=== PATIENT | male | born 1975 | race Caucasian/White ===

== ENCOUNTER 2017-11-22 03:06 | Emergency (ER) | payer SELFPAY ==
[2017-11-22] MEDS ORDERED: NORMAL SALINE 1000 ML 1,000 ML IV ONE (04:02)
[2017-11-22] MEDS ORDERED: KETOROLAC TROMETHAMINE INJ/PF 30 MG/1 ML SDV IV ONE (04:02)
[2017-11-22 04:56] LABS: ABSOLUTE EOSINOPHILS # (AUTO) 0.1 10^3/uL (0.0-0.6); ABSOLUTE MONOCYTES (AUTO) 0.4 10^3/uL (0.1-1.4); ABSOLUTE NEUT (AUTO) 3.7 10^3/uL (1.7-8.2); BASOPHILS % (AUTO) 0.4 % (0-2); EOSINOPHILS % (AUTO) 2.2 % (0-6); HEMATOCRIT 43.5 % (37.9-51.0); HEMOGLOBIN 14.8 g/dL (13.5-17.0); MEAN CORPUSCULAR HEMOGLOBIN 31.6 pg (27.0-33.4); MEAN CORPUSCULAR VOLUME 93 fl (80-97); MONOCYTES % (AUTO) 7.1 % (3-13); PLATELET COUNT 217 10^3/uL (150-450); RED BLOOD COUNT 4.67 10^6/uL (4.35-5.55); RED CELL DISTRIBUTION WIDTH 12.9 % (11.5-14.0); SEGMENTED NEUTROPHILS % (AUTO) 58.3 % (42-78); TOTAL CELLS COUNTED % (AUTO) 100 %; WHITE BLOOD COUNT 6.3 10^3/uL (4.0-10.5)
[2017-11-22 05:07] LABS: APPEARANCE,URINE CLOUDY; BILIRUBIN,URINE NEGATIVE (NEGATIVE); COLOR,URINE STRAW; GLUCOSE, URINE NEGATIVE (NEGATIVE); KETONES,URINE NEGATIVE (NEGATIVE); LEUKOCYTE ESTERASE,URINE LARGE (NEGATIVE); NITRITE,URINE NEGATIVE (NEGATIVE); PROTEIN,URINE NEGATIVE (NEGATIVE); URINE SPECIFIC GRAVITY 1.018; UROBILINOGEN,URINE NEGATIVE mg/dL (<2.0)
[2017-11-22] MEDS ORDERED: MORPHINE SULFATE 10 MG/ML INJ IV ONE (05:47)
[2017-11-22 06:30] LABS: ALANINE AMINOTRANSFERASE 33 U/L (21-72); ALBUMIN 3.8 g/dL (3.5-5.0); ALKALINE PHOSPHATASE 71 U/L (38-126); ANION GAP 12 (5-19); ASPARTATE AMINO TRANSFERASE 23 U/L (17-59); BILIRUBIN,DIRECT 0.3 mg/dL (0.0-0.4); BILIRUBIN,TOTAL 0.4 mg/dL (0.2-1.3); BLOOD UREA NITROGEN 17 mg/dL (7-20); CALCIUM 8.9 mg/dL (8.4-10.2); CARBON DIOXIDE 28 mmol/L (22-30); CHLORIDE 106 mmol/L (98-107); GLUCOSE 106 mg/dL (75-110); LIPASE 492.6 U/L (23-300); POTASSIUM 3.9 mmol/L (3.6-5.0); SODIUM 146.3 mmol/L (137-145)
--- NOTE | 2017-11-22 06:30 | RADIOLOGY REPORT (SQ) ---
EXAM DESCRIPTION: CT ABDOMEN WITHOUT IV CONTRAST CLINICAL HISTORY: 42 years Male, bilateral flank pain Comparison: None. Technique: No contrast. Coronal and sagittal reformat. This exam was performed according to our departmental dose-optimization program, which includes automated exposure control, adjustment of the mA and/or kV according to patient size and/or use of iterative reconstruction technique.[facility]: Dose Right [facility]: CareDose [facility]: Dose Right [facility]: Teradose 4D [facility]: RisparmioSuper LIMITATIONS: None. Findings: Small L4-L5 disc bulge, moderate sclerosis and mild irregularity of endplates at the L4-L5 level. Mild spinal and mild bilateral foraminal canal stenosis. Paraspinal soft tissues are clear. No free fluid. Unenhanced lower thorax, abdominopelvic structures including a normal appendix, and musculoskeleton appear otherwise grossly unremarkable. Impression: Abnormal L4-L5 disc. Differential diagnosis includes subacute/chronic infectious discitis or atypical degenerative disc. Recommend contrast MRI of the lumbar spine.
--- NOTE | 2017-11-22 06:34 | ER Document Report ---
ED General - General Chief Complaint: Abdominal pain, Flank pain Stated Complaint: ABDOMINAL PAIN Time Seen by Provider: 11/22/17 03:45 Mode of Arrival: Ambulatory Notes: 42-year-old male patient complains of bilateral flank pain 2 days, with dysuria , mid abdominal altered sensation "feels like something crawling in there" and throbbing behind his bilateral eyes. Patient reports that all of his pain started Wednesday. Patient is completely alert and oriented and is in no distress. Patient reports past medical history of a possible cyst on his kidney was diagnosed 12-18 months ago. Patient denies any other past medical or surgical history. TRAVEL OUTSIDE OF THE [place] IN LAST 30 DAYS: No - Related Data Allergies/Adverse Reactions: aspirin Allergy (Verified 11/22/17 03:13) Past Medical History - General Information source: Patient - Social History Smoking Status: Current Every Day Smoker Frequency of alcohol use: Social Drug Abuse: None Family History: Reviewed & Not Pertinent Patient has suicidal ideation: No Patient has homicidal ideation: No - Medical History Medical History: Negative Renal/ Medical History: Denies: Hx Peritoneal Dialysis Surgical Hx: Negative Review of Systems - Review of Systems Constitutional: No symptoms reported EENT: No symptoms reported Cardiovascular: No symptoms reported Respiratory: No symptoms reported Gastrointestinal: See HPI Genitourinary: See HPI Male Genitourinary: See HPI Musculoskeletal: No symptoms reported Skin: No symptoms reported Hematologic/Lymphatic: No symptoms reported Neurological/Psychological: No symptoms reported Physical Exam - Vital signs Vitals: Temp Pulse Resp BP Pulse Ox 98.3 F 78 18 165/106 H 98 11/22/17 03:18 11/22/17 03:18 11/22/17 03:18 11/22/17 03:18 11/22/17 03:18 - Notes Notes: PHYSICAL EXAMINATION: GENERAL: Well-appearing, well-nourished and in no acute distress. HEAD: Atraumatic, normocephalic. EYES: Pupils equal round and reactive to light, extraocular movements intact, sclera anicteric, conjunctiva are normal. ENT: Nares patent, oropharynx clear without exudates. Moist mucous membranes. NECK: Normal range of motion, supple without lymphadenopathy LUNGS: Breath sounds clear to auscultation bilaterally and equal. No wheezes rales or rhonchi. HEART: Regular rate and rhythm without murmurs ABDOMEN: Soft, nondistended, pain with palpation to periumbilical area.. No guarding, no rebound. No masses appreciated. Musculoskeletal: Normal range of motion, no pitting or edema. No cyanosis. NEUROLOGICAL: Cranial nerves grossly intact. Normal speech, normal gait. Normal sensory, motor exams PSYCH: Normal mood, normal affect. SKIN: Warm, Dry, normal turgor, no rashes or lesions noted. Course - Re-evaluation Re-evalutation: Well-appearing 40-year-old male presents with very vague complaints. Patient reports that he feels like his eyeballs have throbbing behind them, he feels that there is something crawling in his abdomen right around his umbilical area , has bilateral flank pain he also reports that he has had dysuria. Patient's exam is completely benign other than mild tenderness with deep palpation over the periumbilical area. No guarding no rebound. CT limited with no acute findings, no infected stone, appendix well visualized and appears normal. Lipase mildly elevated at 492. Patient is tolerating p.o. fluids with no issues, patient is not nauseated nausea or vomiting. Urinalysis shows large leukocytes with greater than 182 white blood cells. Patient will be sent home on p.o. antibiotics for urinary tract infection and he will also be treated in the department for potential chlamydia and gonorrhea this patient now states that there is a possibility of him having STDs. Patient further stating that he needs something to control his symptoms at home of his migraine type headaches. Patient states he has taken Fioricet in the past a few years ago and it worked well for him. Will provide patient with prescription for Fioricet and discharge patient home. - Vital Signs Vital signs: Temp Pulse Resp BP Pulse Ox 98.3 F 78 18 165/106 H 98 11/22/17 03:18 11/22/17 03:18 11/22/17 03:18 11/22/17 03:18 11/22/17 03:18 - Laboratory Result Diagrams: 11/22/17 04:32 11/22/17 05:40 Laboratory results interpreted by me: 11/22/17 11/22/17 04:32 05:40 Sodium 146.3 H Creatinine 1.37 H Est GFR (Non-Af Amer) 57 L Lipase 492.6 H Ur Leukocyte Esterase LARGE H Discharge - Discharge Clinical Impression: Abdominal pain Qualifiers: Abdominal location: unspecified location Qualified Code(s): R10.9 - Unspecified abdominal pain Urinary tract infection Qualifiers: Urinary tract infection type: site unspecified Hematuria presence: without hematuria Qualified Code(s): N39.0 - Urinary tract infection, site not specified Condition: Stable Disposition: HOME, SELF-CARE Instructions: Cephalexin ([facility]), Urinary Tract Infection ([facility]) Additional Instructions: Urinary Tract Infection Your evaluation indicates that you have a urinary tract infection. This is due to germs growing in the bladder. This is a common problem. This infection usually responds quickly to antibiotics. Your antibiotic should be taken exactly as prescribed. Drink plenty of fluids -- three to four quarts a day. Occasionally, a bladder anesthetic will be prescribed to help stop the feeling of urgency until the antibiotic has a chance to clear the infection. This may cause your urine to be dark orange. Certain urine infections require a culture. If the doctor obtained a culture, the results will be back in two days. You should call to see if a change in treatment is needed. A repeat urinalysis after you finish treatment is often recommended. The physician will let you know if further testing is required. Call the doctor if you develop fever, chills, flank pain, inability to urinate, or blood in the urine. Headache The physician does not feel that the headache you are experiencing has a serious underlying cause. Most headaches are due to emotional stress, with resultant muscle tension (tension headache). Occasionally, headaches are secondary to changes in the blood vessels of the scalp (vascular headache and migraine headache). Sometimes, a headache is the first symptom of another developing illness, such as a viral infection. You have no evidence of stroke, bleeding, meningitis, or other serious cause of your headache. The treatment of headaches varies with the severity and cause of the pain. Not all headaches need pain shots. In fact, there is evidence that using narcotics for headaches may make them worse in the long run. The physician will determine the therapy that's in your best interest. If you develop a fever, if the headache is different from any you've previously experienced, or if the headache progressively worsens, then call your physician at once or go to the emergency room. Narcotic Medication You have been given a narcotic for pain control while in the emergency department. Don't operate machinery or drive within six hours of taking this medication. Do not combine this medicine with alcohol, or with any medication which can cause sedation (such as cold tablets or sleeping pills) unless you get permission from the physician. Narcotics tend to cause constipation. If possible, drink plenty of fluids and eat a diet high in fiber and fruits. Prescriptions: Butalb/Acetaminophen/Caffeine [Fioricet (50-325-40 mg) Tablet] 1 tab PO Q4HP PRN #30 tab PRN Reason: Cephalexin Monohydrate [Keflex 500 mg Capsule] 500 mg PO Q6H 5 Days #20 capsule Forms: Return to Work
[2017-11-22] MEDS ORDERED: LIDOCAINE 1% INJ-PF (10 MG/ML) 30 ML SDV INJ ONE (06:49)
[2017-11-22] MEDS ORDERED: AZITHROMYCIN 1 GM SUSP PACKET PO ONE (06:49)
[2017-11-22] MEDS ORDERED: CEPHALEXIN 500 MG CAPSULE PO ONE (06:49)
[2017-11-22] MEDS ORDERED: CEFTRIAXONE INJ 250 MG VIAL IM ONE (07:12)
[2017-11-22 08:01] VITALS: BP 145/89
== END 2017-11-22 07:56 | disposition home or self-care (01) ==
LOC: ER 03:06
DX: N39.0 Urinary tract infection, site not specified (principal); F17.200 Nicotine dependence, unspecified, uncomplicated; R74.8 Abnormal levels of other serum enzymes; G43.909 Migraine, unspecified, not intractable, without status migrainosus; Z20.2 Contact with and (suspected) exposure to infections with a predominantly sexual mode of transmission
CPT/HCPCS: 99284; 96372; 96361; 96374; 36415; 83690; 85025; 80053; 81001; 76380; J3490; Q0144; J2270; J7030; J0696

== ENCOUNTER 2018-01-09 13:33 | Emergency (ER) | payer SELFPAY ==
--- NOTE | 2018-01-09 14:44 | ER Document Report ---
ED Medical Screen (RME) - General Chief Complaint: Doesn't Feel Right Stated Complaint: FLANK PAIN Time Seen by Provider: 01/09/18 14:25 Mode of Arrival: Ambulatory Information source: Patient Notes: 42 yr old male presents with complaitns of syncope yesterday while outdoor in the heat and then having spasms of the right upper extremity and right sided headache I have greeted and performed a rapid initial assessment of this patient. A comprehensive ED assessment and evaluation of the patient, analysis of test results and completion of the medical decision making process will be conducted by additional ED providers. PHYSICAL EXAMINATION: GENERAL: Well-appearing, well-nourished and in no acute distress. HEAD: Atraumatic, normocephalic. EYES: Pupils equal round extraocular movements intact, conjunctiva are normal. ENT: Nares patent NECK: Normal range of motion LUNGS: No respiratory distress Musculoskeletal: Normal range of motion NEUROLOGICAL: Normal speech, normal gait. PSYCH: Normal mood, normal affect. SKIN: Warm, Dry, normal turgor, no rashes or lesions noted. TRAVEL OUTSIDE OF THE [place] IN LAST 30 DAYS: No - Related Data Allergies/Adverse Reactions: aspirin Allergy (Verified 01/09/18 14:33) Past Medical History - Social History Chew tobacco use (# tins/day): No Frequency of alcohol use: Occasional Drug Abuse: Marijuana Renal/ Medical History: Denies: Hx Peritoneal Dialysis Past Surgical History: Reports: Hx Abdominal Surgery - hernia repair Physical Exam - Vital signs Vitals: Temp Pulse Resp BP Pulse Ox 98.6 F 89 16 135/75 H 97 01/09/18 13:49 01/09/18 13:49 01/09/18 13:49 01/09/18 13:49 01/09/18 13:49 Course - Vital Signs Vital signs: Temp Pulse Resp BP Pulse Ox 98.6 F 89 16 135/75 H 97 01/09/18 13:49 01/09/18 13:49 01/09/18 13:49 01/09/18 13:49 01/09/18 13:49
[2018-01-09 15:14] LABS: APPEARANCE,URINE CLEAR; BILIRUBIN,URINE NEGATIVE (NEGATIVE); COLOR,URINE YELLOW; GLUCOSE, URINE NEGATIVE (NEGATIVE); KETONES,URINE NEGATIVE (NEGATIVE); LEUKOCYTE ESTERASE,URINE NEGATIVE (NEGATIVE); NITRITE,URINE NEGATIVE (NEGATIVE); PROTEIN,URINE NEGATIVE (NEGATIVE); URINE SPECIFIC GRAVITY 1.009; UROBILINOGEN,URINE NEGATIVE mg/dL (<2.0)
--- NOTE | 2018-01-09 15:28 | RADIOLOGY REPORT (SQ) ---
EXAM DESCRIPTION: CT HEAD WITHOUT COMPLETED DATE/TIME: 01/09/2018 3:06 pm REASON FOR STUDY: parestheisa COMPARISON: None. TECHNIQUE: Axial images acquired through the brain without intravenous contrast. Images reviewed wi th bone, brain and subdural windows. Additional sagittal and coronal reconstructions were generated. Images stored on PACS. All CT scanners at this facility use dose modulation, iterative reconstruction, and/or weight based d osing when appropriate to reduce radiation dose to as low as reasonably achievable (ALARA). [facility]: Dose Right [facility]: CareDose [facility]: Dose Right [facility]: Teradose 4D [facility]: Smart Savored RADIATION DOSE: CT Rad equipment meets quality standard of care and radiation dose reduction techniq ues were employed. CTDIvol: 53.2 mGy. DLP: 991 mGy-cm. mGy. LIMITATIONS: None. FINDINGS: VENTRICLES: Normal size and contour. CEREBRUM: No masses. No hemorrhage. No midline shift. No evidence for acute infarction. Normal gra y/white matter differentiation. No areas of low density in the white matter. CEREBELLUM: No masses. No hemorrhage. No alteration of density. No evidence for acute infarction. EXTRAAXIAL SPACES: No fluid collections. No masses. ORBITS AND GLOBE: No intra- or extraconal masses. Normal contour of globe without masses. CALVARIUM: No fracture. PARANASAL SINUSES: No fluid or mucosal thickening. SOFT TISSUES: No mass or hematoma. OTHER: No other significant finding. IMPRESSION: NORMAL BRAIN CT WITHOUT CONTRAST. EVIDENCE OF ACUTE STROKE: NO. COMMENT: Quality ID # [id number]: Final reports with documentation of one or more dose reduction techniques (e.g., Automated exposure control, adjustment of the mA and/or kV according to patient size, use of iterative reconstruction technique) TECHNICAL DOCUMENTATION: JOB ID: [id number] [employer]- All Rights Reserved Reading location - IP/workstation name: [email or web address]
--- NOTE | 2018-01-09 15:38 | ER Document Report ---
ED General - General Mode of Arrival: Ambulatory Information source: Patient TRAVEL OUTSIDE OF THE [place] IN LAST 30 DAYS: No <ISABEL MILLER - Last Filed: 01/09/18 15:40> <ZACK MCGRATH - Last Filed: 01/09/18 16:44> - General Chief Complaint: Doesn't Feel Right Stated Complaint: FLANK PAIN Time Seen by Provider: 01/09/18 14:25 Notes: Patient is a 42 year old male presenting to the emergency department complaining of multiple symptoms including a syncopal episode yesterday, right upper extremity spasms, right flank pain, right sided neck pain and pain behind the right eye. Patient states he was outside in heat yesterday while visiting a friend and going in and out of his car when he had a syncopal episode. Patient states since then he has not felt like himself. He states he noticed he had right arm spasms when trying to drive further stating it has never happened to him before. He also complains of the right side of his mouth occasionally drooping for around 6-8 seconds. Patient was recently discharged from this emergency department with a diagnosis of a UTI on 11/22/2017. (ISABEL MILLER) - Related Data Allergies/Adverse Reactions: aspirin Allergy (Verified 01/09/18 14:33) Past Medical History - General Information source: Patient - Social History Smoking Status: Current Every Day Smoker Chew tobacco use (# tins/day): No Frequency of alcohol use: Occasional Drug Abuse: Marijuana Family History: Reviewed & Not Pertinent Patient has suicidal ideation: No Patient has homicidal ideation: No Past Surgical History: Reports: Hx Abdominal Surgery - hernia repair <ISABEL MILLER - Last Filed: 01/09/18 15:40> Review of Systems - Review of Systems Constitutional: No symptoms reported EENT: See HPI, Eye pain Cardiovascular: No symptoms reported Respiratory: No symptoms reported Gastrointestinal: No symptoms reported Genitourinary: See HPI, Flank pain Male Genitourinary: No symptoms reported Musculoskeletal: See HPI Skin: No symptoms reported Hematologic/Lymphatic: No symptoms reported Neurological/Psychological: No symptoms reported -: Yes All other systems reviewed and negative <ISABEL MILLER - Last Filed: 01/09/18 15:40> Physical Exam <ISABEL MILLER - Last Filed: 01/09/18 15:40> <ZACK MCGRATH - Last Filed: 01/09/18 16:44> - Vital signs Vitals: Temp Pulse Resp BP Pulse Ox 98.6 F 89 16 135/75 H 97 01/09/18 13:49 01/09/18 13:49 01/09/18 13:49 01/09/18 13:49 01/09/18 13:49 - Notes Notes: GENERAL: Alert, interacts well. No acute distress. HEAD: Normocephalic, atraumatic. EYES: Pupils equal, round, and reactive to light. Extraocular movements intact. ENT: Oral mucosa moist, tongue midline. NECK: Full range of motion. Supple. Trachea midline. Posterior cervical muscles tender to palpation. LUNGS: Clear to auscultation bilaterally, no wheezes, rales, or rhonchi. No respiratory distress. HEART: Regular rate and rhythm. No murmurs, gallops, or rubs. ABDOMEN: Soft, non-tender. Non-distended. Bowel sounds present in all 4 quadrants. EXTREMITIES: Moves all 4 extremities spontaneously. NEUROLOGICAL: Alert and oriented x3. Normal speech. PSYCH: Normal affect, normal mood. SKIN: Warm, dry, normal turgor. No rashes or lesions noted. BACK: No tenderness to the back muscles or bilateral flank. (ISABEL MILLER) Course <ANGELAKSENIARANJITH - Last Filed: 01/09/18 15:40> - Laboratory Result Diagrams: 01/09/18 15:37 01/09/18 15:37 - Diagnostic Test Radiology reviewed: Image reviewed, Reports reviewed - CT scan of the head is unremarkable. <ZACK MCGRATH - Last Filed: 01/09/18 16:44> - Re-evaluation Re-evalutation: 01/09/18 16:34 Patient's lab work is unremarkable. His BUN and creatinine are actually better than they were when he was seen here on 11/22/2017 with a urinary tract infection. The urine does not show any sign of infection today. The CK is normal. He does have a multitude of complaints, and several are similar to what was recorded on his visit on 11/22/2017. (ZACK MCGRATH) - Vital Signs Vital signs: Temp Pulse Resp BP Pulse Ox 98.6 F 89 16 135/75 H 97 01/09/18 13:49 01/09/18 13:49 01/09/18 13:49 01/09/18 13:49 01/09/18 13:49 - Laboratory Laboratory results interpreted by me: 01/09/18 01/09/18 15:37 15:37 RBC 4.28 L Chloride 108 H Glucose 119 H Discharge <ANGELA,TAMRANJITH - Last Filed: 01/09/18 15:40> <ZACK MCGRATH - Last Filed: 01/09/18 16:44> - Discharge Clinical Impression: Tension type headache Qualifiers: Headache chronicity pattern: unspecified pattern Intractability: not intractable Qualified Code(s): G44.209 - Tension-type headache, unspecified, not intractable Condition: Stable Disposition: HOME, SELF-CARE Additional Instructions: Tension Headache: Your problem has been diagnosed as muscle tension headache. This very common type of headache occurs because of tightness in the muscles of the head and neck. Most commonly the cause is emotional stress. The headache may last hours or days. The treatment of uncomplicated tension headaches is rest and pain medication. Often, antiinflammatory pain medications such as ibuprofen or Aleve are recommended, as these also decrease the irritability of the painful tissues. Cold packs, or warm packs are sometimes helpful. Your doctor has evaluated your headache problem, and finds no evidence of a serious health problem as a cause for the headache. If your headache becomes more severe, or if new symptoms develop (such as fever, stiff neck, vomiting, or decreasing alertness) you should be re-examined by the physician. On your last emergency room visit, you will prescribed Fioricet for your headaches. This medication is mostly used for tension type headaches. Your history, and your exam today indicate this is a muscle tension type headache. There is no evidence of any injury from your heat exposure yesterday. Your lab work shows you to be well hydrated today. The CT scan of your brain was unremarkable. You should continue to drink plenty of fluids and get plenty of rest. Take Tylenol for your headache as needed. Follow-up with a local medical doctor if not improving. Clementina Attestation: 01/09/18 16:42 I personally performed the services described in the documentation, reviewed and edited the documentation which was dictated to the scribe in my presence, and it accurately records my words and actions. (ZACK MCGRATH) Scribe Documentation - Scribe Written by Clementina:: Clementina Harkins, 01/09/2018 15:42 acting as scribe for :: Solomon <ISABEL MILLER - Last Filed: 01/09/18 15:40>
[2018-01-09 15:47] LABS: ABSOLUTE EOSINOPHILS # (AUTO) 0.1 10^3/uL (0.0-0.6); ABSOLUTE LYMPHOCYTES (AUTO) 1.4 10^3/uL (0.5-4.7); ABSOLUTE MONOCYTES (AUTO) 0.4 10^3/uL (0.1-1.4); ABSOLUTE NEUT (AUTO) 3.8 10^3/uL (1.7-8.2); BASOPHILS % (AUTO) 0.6 % (0-2); EOSINOPHILS % (AUTO) 1.4 % (0-6); HEMOGLOBIN 13.7 g/dL (13.5-17.0); LYMPHOCYTES % (AUTO) 24.1 % (13-45); MEAN CORPUSCULAR HEMOGLOBIN 32.1 pg (27.0-33.4); MEAN CORPUSCULAR HGB CONC 34.4 g/dL (32.0-36.0); MEAN CORPUSCULAR VOLUME 93 fl (80-97); MONOCYTES % (AUTO) 7.5 % (3-13); PLATELET COUNT 200 10^3/uL (150-450); RED BLOOD COUNT 4.28 10^6/uL (4.35-5.55); RED CELL DISTRIBUTION WIDTH 12.4 % (11.5-14.0); SEGMENTED NEUTROPHILS % (AUTO) 66.4 % (42-78); TOTAL CELLS COUNTED % (AUTO) 100 %; WHITE BLOOD COUNT 5.7 10^3/uL (4.0-10.5)
[2018-01-09 16:08] LABS: ALANINE AMINOTRANSFERASE 36 U/L (21-72); ALKALINE PHOSPHATASE 64 U/L (38-126); ANION GAP 9 (5-19); ASPARTATE AMINO TRANSFERASE 25 U/L (17-59); BILIRUBIN,DIRECT 0.3 mg/dL (0.0-0.4); BILIRUBIN,TOTAL 0.6 mg/dL (0.2-1.3); BLOOD UREA NITROGEN 16 mg/dL (7-20); CALCIUM 9.1 mg/dL (8.4-10.2); CARBON DIOXIDE 28 mmol/L (22-30); CHLORIDE 108 mmol/L (98-107); CREATINE KINASE 96 U/L (55-170); GLUCOSE 119 mg/dL (75-110); POTASSIUM 4.7 mmol/L (3.6-5.0)
[2018-01-09 17:02] VITALS: BP 136/79
== END 2018-01-09 16:56 | disposition home or self-care (01) ==
LOC: ER 13:33
DX: G44.209 Tension-type headache, unspecified, not intractable (principal); R55 Syncope and collapse; R25.2 Cramp and spasm; R10.9 Unspecified abdominal pain; M54.2 Cervicalgia; F17.200 Nicotine dependence, unspecified, uncomplicated
CPT/HCPCS: 36415; 70450; 80053; 81001; 82550; 85025; 99284